=== PATIENT | female | born 1960 | race Two or more races ===

== ENCOUNTER 2019-06-14 17:46 | Emergency (ER) | payer BC ==
[~2019-06-14] VITALS: Ht 154.9 cm; Wt 80.0 kg
[2019-06-14] MEDS ORDERED: IBUPROFEN 200 MG TABLET PO ONE (19:30)
[2019-06-14 19:45] LABS: RAPID INFLUENZA A Negative (Negative); RAPID INFLUENZA B POSITIVE (Negative)
--- NOTE | 2019-06-14 19:45 | NUR ---
pt called to room from lobby
[2019-06-14] MEDS ORDERED: IBUPROFEN 600 MG TABLET ONE (20:25)
[2019-06-14] MEDS ORDERED: JANUVIA (20:31)
[2019-06-14] MEDS ORDERED: [UNRECOGNIZED DRUG - OTHER] (20:31)
--- NOTE | 2019-06-14 20:31 | NUR ---
PT HERE WITH C/O BACK PAIN, NAUSEA, AND COUGH. PT AAO NX 4, THAI ONLY. DRESSED IN GOWN AND ATTACHED TO MONITOR. PT WEARING MASK, FMAILY AT BEDSIDE TO TRANSLATE. MED REC COMPLETED. PT MEDICATED PER ORDERS AND TESTED POSITIVE FOR FLU B. NAD, ROOM AIR, CALL LIGHT WITHIN REACH.
[2019-06-14] MEDS ORDERED: ACETAMINOPHEN 325 MG TABLET ONE (20:59)
[2019-06-14] MEDS ORDERED: ACETAMINOPHEN 325 MG TABLET PO ONE (21:00)
--- NOTE | 2019-06-14 21:01 | NUR ---
PT MEDICATED PER ORDERS.
--- NOTE | 2019-06-14 21:15 | NUR ---
PT TOLERATING PO FLUIDS. TEMP RECHECK 100.8.
--- NOTE | 2019-06-14 21:21 | NUR ---
REPORT GIVEN TO LEEANN SANDS. CARE TRANSFERRED.
[2019-06-14 21:42] VITALS: BP 139/79
--- NOTE | 2019-06-14 21:45 | NUR ---
Note undone in EDM - 06/14/19 at 2148 by SKY RN received report, assumed patient care. Patient in [facility] frequently, but per report patient is at her baseline. Family member no longer at bedside. Patient transported to [place], just returned.
--- NOTE | 2019-06-14 21:48 | NUR ---
Received report and assumed patient care. Patient resting comfortably. Updated vitals and noted patient heart rate and temperature have improved. Noted discharge orders, family and patient informed and agreeable to discharge. Patient removed from monitor and encouraged to get dressed. Patient discharge by task RN.
== END 2019-06-14 21:49 | disposition home or self-care (01) ==
LOC: ED 21:24
DX: J10.1 Influenza due to other identified influenza virus with other respiratory manifestations (principal); J20.8 Acute bronchitis due to other specified organisms
CPT/HCPCS: 87400; 93005; 99284